=== PATIENT | female | born 1980 | race Caucasian/White ===

== ENCOUNTER 2021-11-26 20:13 | Emergency (ER) | payer SELFPAY ==
[~2021-11-26] VITALS: Ht 165.1 cm; Wt 93.0 kg
--- NOTE | 2021-11-26 20:56 | NUR ---
PT AMB TO BED 07
[2021-11-26 20:59] VITALS: BP 146/82
[2021-11-26 21:26] LABS: BASOPHILS # (AUTO) 0.1 K/uL (0.00-0.22); BASOPHILS % (AUTO) 0.6 % (0.0-2.0); EOSINOPHILS # (AUTO) 0.1 K/uL (0-0.4); EOSINOPHILS % (AUTO) 1.3 % (0.0-4.0); HEMATOCRIT 40.1 % (36-48); HEMOGLOBIN 13.3 g/dL (12.0-16.0); LYMPHOCYTES # (AUTO) 5.2 K/uL (2.5-16.5); LYMPHOCYTES % (AUTO) 44.5 % (20.5-51.1); MEAN CORPUSCULAR HEMOGLOBIN 28 pg (27-31); MEAN CORPUSCULAR HGB CONC 33 g/dL (33-37); MEAN CORPUSCULAR VOLUME 83.1 fL (80-94); MONOCYTES # (AUTO) 0.5 K/uL (0.8-1.0); MONOCYTES % (AUTO) 4.5 % (1.7-9.3); NEUTROPHILS # (AUTO) 5.8 K/uL (1.8-7.7); NEUTROPHILS % (AUTO) 49.1 % (42.2-75.2); PLATELET COUNT (AUTO) 299 K/uL (140-450); RED BLOOD CELL COUNT(AUTO) 4.83 MIL/uL (4.20-5.40); RED CELL DISTRIBUTION WIDTH 15.6 % (11.6-13.7); WHITE BLOOD COUNT (AUTO) 11.7 K/uL (4.8-10.8)
[2021-11-26 21:32] LABS: APPEARANCE,URINE CLEAR (CLEAR); BILIRUBIN,URINE NEGATIVE (NEGATIVE); BLOOD, URINE 3+ (NEGATIVE); COLOR,URINE RED (YELLOW); LEUKOCYTE ESTERASE ,URINE TRACE (NEGATIVE); NITRITE, URINE NEGATIVE (NEGATIVE); UGLUCOSE NEGATIVE (NEGATIVE)
--- NOTE | 2021-11-26 21:37 | NUR ---
ULTRASOUND AT BEDSIDE
--- NOTE | 2021-11-26 21:37 | NUR ---
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 DENIES INJURY OR TRAUMA. PAIN X6DAYS 4/10 PAIN LEVEL. PT IN BED WITH HOB ELEVATED. NO DEFORMITY TO WRIST . GOOD CAP REFILL ROM GOOD. PARENT AT BEDSIDE. UTD WITH VACCICATIONS . NKDA NO MED HX
[2021-11-26 21:44] LABS: OTHER CASTS, URINE None Seen /LPF (None Seen); RBC,URINE 20-50 /HPF (0-5); WBC,URINE 0-5 /HPF (0-5)
--- NOTE | 2021-11-26 22:46 | NUR ---
RESP EVEN AND UNLABORED. ULTRASOUND COMPLETE. DR BLUNT AT BEDSIDE . PENDING DC
[2021-11-26] MEDS ORDERED: CEPH500C16 PO (23:27)
[2021-11-26 23:35] VITALS: BP 127/76
--- NOTE | 2021-11-26 23:35 | NUR ---
Patient discharged with v/s stable. Written and verbal after care instructions given and explained. Patient alert, oriented and verbalized understanding of instructions. Ambulatory with steady gait. All questions addressed prior to discharge. ID band removed. Patient advised to follow up with PMD. Rx of KEFLEX given.
--- NOTE | 2021-11-26 23:47 | NUR ---
The patient's care was reviewed and supervised by Candace Mays RN, RN.
== END 2021-11-26 23:35 | disposition home or self-care (01) ==
LOC: MED 20:47
DX: O20.0 Threatened abortion (principal); O23.91 Unspecified genitourinary tract infection in pregnancy, first trimester; R82.71 Bacteriuria; O24.111 Pre-existing type 2 diabetes mellitus, in pregnancy, first trimester; Z3A.01 Less than 8 weeks gestation of pregnancy
CPT/HCPCS: 36415; 76817; 81001; 84702; 85025; 86900; 86901; 99284; Q0092